=== PATIENT | female | born 1950 | race Caucasian/White ===

== ENCOUNTER → 2017-04-09 | Outpatient (CLI) | payer BC | END | disposition home or self-care (01) | LOC: CDC 14:34 | DX: Z01.810 Encounter for preprocedural cardiovascular examination (principal) | CPT/HCPCS: 93000 ==

== ENCOUNTER 2017-11-04 14:50 | Inpatient (IN) | payer OTHER, BC ==
[~2017-11-04] VITALS: Ht 154.9 cm; Wt 85.7 kg
[2017-11-04 18:52] VITALS: BP 129/74
[2017-11-04] MEDS ORDERED: LOVENOX40 MG/0.4 SC (19:27)
[2017-11-04] MEDS ORDERED: MOTRIN400 MG PO (19:28)
[2017-11-04] MEDS ORDERED: MELATONIN3 MG PO (19:30)
[2017-11-04] MEDS ORDERED: ZYLOPRIM100 MG PO (19:31)
[2017-11-04] MEDS ORDERED: ULTRAM50 MG PO (19:31)
[2017-11-04] MEDS ORDERED: EPIPEN ADU0.3 MG/0.3 IM (19:32)
[2017-11-04] MEDS ORDERED: LEVOTHYROXINE25 MCG PO (19:33)
[2017-11-04] MEDS ORDERED: PRAVACHOL40 MG PO (19:33)
[2017-11-04] MEDS ORDERED: TYLENOL REGULA325 MG PO (19:34)
[2017-11-04 20:01] VITALS: BP 127/62
[2017-11-05 00:43] VITALS: BP 122/58
[2017-11-05 04:40] LABS: HEMATOCRIT 23.6 % (36.0-46.0); HEMOGLOBIN 7.7 G/DL (11.9-15.5); MCH 31.8 PG (29.0-34.0); MCHC 32.6 G/DL (30.0-36.0); MCV 97.5 FL (83-99); NRBC (%) 0.4 /100 WBC (0-0); PLATELET COUNT 299 K/uL (156-360); RBC DIS.WIDTH-CV 13.8 % (11.8-14.6); RBC DIS.WIDTH-SD 47.5 % (39-53); RED BLOOD COUNT 2.42 M/uL (3.80-5.20); WHITE BLOOD COUNT 5.7 K/uL (4.1-10.2)
[2017-11-05 04:50] LABS: ALBUMIN 3.5 g/dL (3.2-4.8); CHLORIDE 105 mEq/L (99-109); POTASSIUM 4.4 mEq/L (3.7-5.4); SODIUM 138 mEq/L (136-147)
[2017-11-05 04:53] LABS: GLUCOSE 113 mg/dL (70-99); TOTAL PROTEIN 5.6 g/dL (6.4-8.3)
[2017-11-05 04:55] LABS: TOTAL BILIRUBIN 1.2 mg/dL (0.0-1.0)
[2017-11-05 04:56] LABS: ALKALINE PHOSPHATASE 176 IU/L (3-129); CREATININE 0.7 mg/dL (0.6-1.3); GFR ESTIMATE (CALCULATED) > 59 mL/min/
[2017-11-05 04:57] LABS: UREA NITROGEN (BUN) 28 mg/dL (9-23)
[2017-11-05 04:58] LABS: AST (GOT) 17 IU/L (2-34)
[2017-11-05 04:59] LABS: ALT (GPT) 35 IU/L (3-49)
[2017-11-05 05:25] VITALS: BP 128/64
[2017-11-05 15:07] VITALS: BP 112/65
[2017-11-06 05:18] VITALS: BP 138/67
[2017-11-06 07:18] LABS: HEMATOCRIT 25.8 % (36.0-46.0); HEMOGLOBIN 8.3 G/DL (11.9-15.5); MCHC 32.2 G/DL (30.0-36.0); MCV 99.6 FL (83-99); NRBC (%) 0.3 /100 WBC (0-0); PLATELET COUNT 325 K/uL (156-360); RBC DIS.WIDTH-CV 14.1 % (11.8-14.6); RBC DIS.WIDTH-SD 48.2 % (39-53); RED BLOOD COUNT 2.59 M/uL (3.80-5.20); WHITE BLOOD COUNT 5.8 K/uL (4.1-10.2)
[2017-11-06 15:54] VITALS: BP 127/63
[2017-11-07 05:16] VITALS: BP 127/65
[2017-11-07 16:02] VITALS: BP 120/57
[2017-11-08 06:08] VITALS: BP 140/73
[2017-11-08 15:51] VITALS: BP 133/84
[2017-11-09 05:41] VITALS: BP 156/74
[2017-11-10 05:38] VITALS: BP 117/74
[2017-11-10 05:40] LABS: HEMATOCRIT 28.1 % (36.0-46.0); HEMOGLOBIN 8.9 G/DL (11.9-15.5); MCH 31.3 PG (29.0-34.0); MCHC 31.7 G/DL (30.0-36.0); MCV 98.9 FL (83-99); PLATELET COUNT 327 K/uL (156-360); RBC DIS.WIDTH-CV 14.5 % (11.8-14.6); RBC DIS.WIDTH-SD 51.5 % (39-53); RED BLOOD COUNT 2.84 M/uL (3.80-5.20)
[2017-11-10 06:02] LABS: CHLORIDE 103 MEQ/L (99-109); CREATININE 0.8 MG/DL (0.6-1.3); GFR ESTIMATE (CALCULATED) > 59 mL/min/; GLUCOSE 111 mg/dL (70-99); POTASSIUM 4.6 MEQ/L (3.7-5.4); SODIUM 138 MEQ/L (136-147); UREA NITROGEN (BUN) 29 mg/dL (9-23)
[2017-11-10 15:09] VITALS: BP 119/66
[2017-11-11 04:00] VITALS: BP 124/67
[2017-11-11 15:34] VITALS: BP 127/60
[2017-11-12 05:11] VITALS: BP 139/81
[2017-11-12] MEDS ORDERED: LOVENOX40 MG/0.4 SC (11:02)
[2017-11-12 16:16] VITALS: BP 118/62
[2017-11-13 05:01] VITALS: BP 112/59
[2017-11-13 15:36] VITALS: BP 110/64
[2017-11-13] MEDS ORDERED: FERROUS SULFAT325 MG PO (21:04)
[2017-11-14 05:48] VITALS: BP 152/80
== END 2017-11-14 14:45 | disposition home health service (06) | DRG 560 ==
LOC: 3WEST 14:50 → ENPENDDIS 11-14 → 3WEST 11-14 14:45
PROVIDERS: Physical Medicine & Rehabilitation Pain Medicine; Psychiatry & Neurology Neurology
PROC: F07M0ZZ Range of Motion and Joint Mobility Treatment of Musculoskeletal System - Whole Body (ICD-10-PCS; principal; 2017-11-04)
DX: S72.91XD Unspecified fracture of right femur, subsequent encounter for closed fracture with routine healing (principal); W19.XXXD Unspecified fall, subsequent encounter; D62 Acute posthemorrhagic anemia; M10.9 Gout, unspecified; E03.9 Hypothyroidism, unspecified; Z96.653 Presence of artificial knee joint, bilateral; Z47.89 Encounter for other orthopedic aftercare
CPT/HCPCS: 71045; 80048; 80053; 85027; 97110 GO; 97530 GP; J1650